=== PATIENT | male | born 1950 | race Caucasian/White ===

== ENCOUNTER 2017-01-26 02:33 | Inpatient (IN) | payer OTHER ==
--- NOTE | 2017-01-26 02:43 | PROVIDER DOCUMENTATION ---
HPI-General Adult - General Chief Complaint: Low Blood Sugar Stated Complaint: low blood sugar Time Seen by Provider: 01/26/17 02:37 Source: patient - History of Present Illness -Gen Adult Nature of Presenting Problems: Pt is a 66 yom who presents to ER via EMS with CC of low blood sugar. Per EMS, pt reports that he woken up by due to pt sweating profusely. Pt's reports that pt was extremely difficult to arouse. EMS reports that pt's bloodsugar was 40 on arrival, was given a shot of D50 and blood sugar ric to 104. Location of Pain/Injury: reports: none Pain Radiation: reports: no radiation Quality of Pain: reports: none Severity: reports: moderate Onset/Duration: reports: 1/2 hour ago Timing: reports: still present, improving Context/Activities at Onset: reports: sleep Associated Symptoms: reports: diaphoresis, fatigue, weakness. denies: anxiety, arm pain, back/neck pain, chest pain, constipation, cough, diarrhea, dizziness, EENT symptoms, fever/chills, genitourinary problems, headaches, heartburn, joint pain, loss of appetite, muscle aches, sinus congestion/drainage, nausea, rash, shortness of breath, sensory/motor loss, syncope, vomiting, trouble walking - Diabetes Related Context Context: reports: low blood sugar Review of Systems - Adult - REVIEW OF SYSTEMS - ADULT Constitutional: reports: fatique, night sweats. denies: chills, fever, weight gain, weight loss Eyes: reports: no symptoms reported Ears, Nose, Mouth & Throat: reports: no symptoms reported Cardiovascular: reports: no symptoms reported Respiratory: reports: no symptoms reported Gastrointestinal: reports: no symptoms reported Genitourinary: reports: no symptoms reported Musculoskeletal: reports: no symptoms reported Integumentary: reports: other (diaphoretic). denies: hives, hair loss, itching , mole changes, nail changes, rash, skin sores/ulcer, skin thickening Neurological: reports: no symptoms reported Psychiatric: reports: no symptoms reported Endocrine: reports: excessive sweating. denies: change in skin pigment, goiter , cold intolerance, heat intolerance, increased hunger, increased thirst, polyuria Hematologic/Lymphatic: reports: no symptoms reported Allergic/Immunologic: reports: no symptoms reported All Other Systems: Reviewed and Negative Past History - Adult - PAST MEDICAL HISTORY-ADULT Review of Records: reports: Nursing Assessment Review, Medications Reviewed - IMMUNIZATION STATUS Childhood Immunizations: See Nurse Assessment Flu Vaccine: See Nurse Assessment Physical Exam-General - PHYSICAL EXAM-ADULT Initial Vital Signs Reviewed: Yes - CONSTITUTIONAL General Appearance: appears well, alert, no apparent distress, obese, lethargic , slow to respond. negative: mild distress, anxious - RESPIRATORY Respiratory: chest non-tender, lungs clear, normal breath sounds. negative: respiratory distress, decreased breath sounds, accessory muscle use, wheezing - CARDIOVASCULAR Cardiovascular: normal peripheral pulses, regular rate, rhythm. negative: bradycardia, tachycardia - GASTROINTESTINAL (ABDOMEN) Abdominal Exam: normal bowel sounds, non tender, soft. negative: abnormal bowel sounds, distended, tenderness, mass - NEUROLOGIC Neurologic: grossly normal, no motor/sensory deficits. negative: facial droop, focal weakness, motor weakness, sensory deficit - PSYCHIATRIC Psych/Mental Status: normal thought content, normal thought process, oriented x 3, depressed affect. negative: normal mood/affect Progress - EKG 1 Time of EKG reading by physician:: 02:45 EKG Read and Signed by:: Aditya De Guzman EKG Interpretation (*Must complete 3 of following elements*): Abnormal (Cannot rule out Anterior infarct, age undetermined) Rate: 54 Rhythm: Sinus bradycardia Attestation - Scribe Verification/Attestation Scribe:: Enrico Lopez Acting as Scribe for:: Aditya De Guzman [employer] documention review:: This chart was documented by a scribe and accurately reflects the service the provider performed and the decisions made by the provider.
[2017-01-26] MEDS ORDERED: D50W SYRINGE ONE (02:44)
[2017-01-26] MEDS ORDERED: D5 NS 1,000 ML IV ONE (02:47)
[2017-01-26] MEDS ORDERED: D50W SYRINGE IV ONE (02:53)
[2017-01-26] MEDS ORDERED: D5 NS IV ONE (02:54)
[2017-01-26 03:50] LABS: MANUAL DIFF NEEDED? NO
[2017-01-26 03:55] LABS: BASO% 0.2 % (0.0-0.8); EOS# 0.21 X1000 (0.0-0.7); EOS% 1.2 % (0.0-10.0); HEMATOCRIT 45.2 % (42.0-52.0); HEMOGLOBIN 15.5 g/dL (14.0-18.0); IMM GRAN# 0.06 X1000 (0.0-0.04); IMM GRAN% 0.3 % (0.0-0.5); LYMPH# 3.92 X1000 (1.2-3.4); LYMPH% 22.6 % (20.5-51.1); MCH 29.8 PG (27-31); MCHC 34.3 g/dL (33-37); MCV 86.9 FL (81-99); MONO# 1.25 X1000 (0.11-0.59); MONO% 7.2 % (1.7-9.3); MPV 11.2 FL (7.4-10.4); NEUT% 68.5 % (42.2-75.2); PLT 251 X1000 (130-400)
[2017-01-26 04:19] LABS: AGAP 16; ALBUMIN 4.2 g/dL (3.5-5.0); ALKALINE PHOSPHATASE 60 U/L (32-122); BUN 22 mg/dL (8-22); CALCIUM 9.4 mg/dL (8.8-10.2); CHLORIDE 101 mmol/L (98-107); COSMO 278; GOT 24 U/L (10-34); GPT 33 U/L (10-44); POTASSIUM 3.4 mmol/L (3.5-5.1); SODIUM 139 mmol/L (136-145); TCO2 22 mmol/L (25-35); TOTAL BILIRUBIN 0.37 mg/dL (0.20-1.00); TOTAL PROTEIN 7.1 g/dL (6.3-8.3)
[2017-01-26 04:32] LABS: CK PROFILE 299 U/L (24-204)
[2017-01-26 04:57] LABS: URINE CULTURE NEEDED? NO; URINE MICRO REVIEW NEEDED? NO; URINE SOURCE CLEAN CATCH
[2017-01-26 05:16] LABS: BILIRUBIN URINE NEGATIVE (NEGATIVE); BLOOD URINE NEGATIVE (NEGATIVE); COLOR YELLOW; GLUCOSE URINE 200 mg/dL (NEGATIVE); LEUKOCYTES URINE NEGATIVE (NEGATIVE); NITRITE URINE NEGATIVE (NEGATIVE); PROTEIN URINE TRACE mg/dL (NEGATIVE); SP GRAVITY URINE 1.015; TURBIDITY URINE CLEAR (CLEAR); UROBILINOGEN URINE NORMAL (NORMAL)
[2017-01-26 05:17] LABS: UR EPITHELIAL CELLS <10 /HPF (<10); URINE BACTERIA NEGATIVE /HPF; URINE RBC <10 /HPF (<10); URINE WBC <10 /HPF (<10)
[2017-01-26 05:19] LABS: CK INDEX 1.8 (0.0-2.5); CK-MB 5.53 ng/mL (0.0-5.0)
[2017-01-26 05:25] LABS: UR AMPHETAMINES QUAL NONE DETECTED (NONE DETECT); UR BARBITUATES QUAL NONE DETECTED (NONE DETECT); UR BENZODIAZEPIN QUAL NONE DETECTED (NONE DETECT); UR CANNABINOIDS QUAL NONE DETECTED (NONE DETECT); UR COCAINE QUAL NONE DETECTED (NONE DETECT); UR METHADONE QUAL NONE DETECTED (NONE DETECT); UR OPIATES QUAL NONE DETECTED (NONE DETECT); UR OXYCODONE QUAL NONE DETECTED (NONE DETECT); UR PCP QUAL NONE DETECTED (NONE DETECT)
[2017-01-26] MEDS ORDERED: D50W SYRINGE IV PRN (07:01)
[2017-01-26] MEDS ORDERED: ZOFRAN IV PRN (07:01)
[2017-01-26] MEDS ORDERED: TYLENOL PO PRN (07:01)
[2017-01-26] MEDS ORDERED: LOVENOX SUBQ SCH (07:01)
[2017-01-26] MEDS ORDERED: POTASSIUM CHLORIDE 10 MEQ in D5 NS 1,000 ML IV ONE (07:01)
--- NOTE | 2017-01-26 07:33 | HISTORY AND PHYSICAL ---
REASON FOR ADMISSION: Decreased responsiveness in early hours this morning. HISTORY OF PRESENT ILLNESS: Mr. Gopal Reyes is a 66-year-old man with a past medical history of type 2 diabetes and hypertension. His noticed that while they were in bed, she rolled over in bed and noticed that the sheets were very wet on the side where her was sleeping. Initially, she thought he had urinated in the bed but when she observed closely, she noticed that he was in a very unusual deep sleep. She tried to arouse him but he did not arouse. Then she called EMS. At that time, they checked him. His blood sugar was less than 40. They gave him some D50 and he aroused enough to recognize his and became very somnolent on his way to the hospital. On 2 successive times, his blood sugar has dropped down into the sub 40 range despite having an ampule of D50 and having D5 running. He is being admitted because of his persistently low blood sugar. Patient reports that a few weeks ago, Dr. John increased his Levemir dose which he takes about 50 units at bedtime because his blood sugars were persistently elevated and was having polyuria and polydipsia. He reports that he has been doing rather well since then and not aware of any hypoglycemic spell. The patient denies any cardiorespiratory, GI, , neurological complaints at this time. He only feels a little weak but otherwise no other acute complaints. REVIEW OF SYSTEMS: Twelve system review is negative. Positive findings per HPI. ALLERGIES: Codeine. MEDICATIONS: List not available but he takes is oral hypoglycemics with 50 units of Levemir. FAMILY HISTORY: No first-degree relatives with heart disease or diabetes. SURGICAL HISTORY: He has had knee and shoulder surgery. SOCIAL HISTORY: Lives with his . Does not smoke, drink, or use illicit drugs. LAB WORK: White count is 17,000, hemoglobin and hematocrit 15 and 45, platelets 251,000 with normal differential. Chemistries still pending are troponin, lactate, urine drug screen, and urinalysis. PHYSICAL EXAMINATION: VITAL SIGNS: Blood pressure 150/79, heart rate 55, respirations 18, temperature is 98, he is 96% on room air. GENERAL: He is a middle-aged, man who is not in acute distress. He is A and O x3 with normal mood and affect. He is slightly drowsy. HEENT: Head is normocephalic, atraumatic. Eyes: KADE, EOMI. He is anicteric and not pale. ENT and oropharynx exam is grossly normal. NECK: Supple. No JVD or carotid bruit. No thyromegaly. INTEGUMENTARY: The patient has decreased skin turgor. CHEST: Clear to auscultation with good air entry both lung quinteros. CARDIOVASCULAR: First and sounds heard. No gallops, murmurs, rubs. Rhythm is regular. ABDOMEN: Protuberant, soft, nontender. No mass or organomegaly. Bowel sounds are hypoactive. RECTAL: Examination deferred at this time. EXTREMITIES: Neurovascularly intact. No edema, clubbing, or peripheral cyanosis. NEUROLOGIC: No focal deficits. SKIN: Intact. No breakdown, lesions, or erythema. MUSCULAR: Examination is grossly normal. ASSESSMENT: 1. Persistent hypoglycemia. 2. Type 2 diabetes. 3. Hypertension. 4. Reactive leukocytosis. 5. Dehydration. PLAN: At this time, awaiting the outstanding labs and medication list which needs to be reviewed. Patient was not able to provide the latter. For now, we will aggressively treat the patient with D50 if blood sugar drops below 100. Continue with D5 NS to maintain elevated blood sugars and replenish patient's depleted intravascular volume. I told the patient that when he is discharged, he should go home on a lower dose of Levemir but at this time, take it during the day so he will be aware when his blood sugars drop. Otherwise, sugar Accu-Cheks will done every 4 hours to closely monitor his blood sugars and repeat labs in the morning.
[2017-01-26] MEDS: HUMALOG SUBQ SCH ×3 (08:05→16:18)
--- NOTE | 2017-01-26 09:08 | EKG Report ---
Test Performed on : 01/26/2017 02:34:23 AM Test Reason : AMS Blood Pressure : / mmHG Vent. Rate : 054 BPM Atrial Rate : 054 BPM P-R Int : 182 ms QRS Dur : 116 ms QT Int : 488 ms P-R-T Axes : 044 041 072 degrees QTc Int : 462 ms Sinus bradycardia. Cannot rule out Anterior infarct , age undetermined Abnormal ECG No previous ECGs available Unconfirmed Result
[2017-01-26] MEDS ORDERED: GLUCOPHAGE PO SCH (17:00)
--- NOTE | 2017-01-26 18:06 | PROGRESS NOTE ---
DATE: 01/26/2017 SUBJECTIVE: Mr. Gopal Reyes states he feels much better, would like to go home. Will have to readjust some of his insulin to make sure he does not have any more hypoglycemic episodes. Otherwise no complaints. OBJECTIVE: Vital signs: Temperature is 97.7 degrees, heart rate 77, respiratory rate 20, blood pressure 151/80, O2 saturation 97% on room air. General: Mr. Reyes 66-year-old male, no acute distress. Able to answer all questions appropriately. Cardiovascular: S1, S2. Regular rate and rhythm. No rubs, gallops, murmurs. Pulmonary: Clear to auscultate, bilateral breath sounds. No accessory muscle use or work of breathing noted. GI: Soft, nontender, nondistended. Positive bowel sounds x4. LABORATORY DATA: Glucoses 3 a.m. was 35, 5 a.m. was 211, 8 a.m. was 289 and around 1130 maybe even 12 not sure but it was 351. ASSESSMENT/PLAN: 1. Diabetes mellitus type 2 with symptomatic hypoglycemia. Apparently his insulin regimen has been changed recently. He is supposed to take Levemir 55 units nightly. Patient actually only took 40 units last night secondary to the fact that he has noticed that his pattern blood glucoses have been in the 80s upon waking in the mornings. He did arrive with blood glucoses in the 30s and 40s. He received D50 and he received D5 with normal saline at 50 an hour. This has been stopped since we are now stabilized with blood glucoses 200s-300s. Diet has been changed to diabetic diet from regular diet. Will continue with pattern blood glucoses, sliding scale insulin. Will decrease his Levemir to 20 units tonight from 55. Will continue his home oral regimen. If he continues to have hypoglycemic episodes will need to readjust medication regimen again, if is stable through the night may be able to be discharged in the morning. 2. Hypertension stable. 3. Leukocytosis. This is likely secondary to inflammation from stress response of hypoglycemia. 4. Dehydration resolved, taking in excellent oral intake. 5. Deep venous thrombosis prophylaxis Lovenox. 6. Gastrointestinal prophylaxis. Will add proton pump inhibitor. Dictated by SHARIFA Parry for Jsese Hernandez MD
[2017-01-26 19:27] VITALS: BP 134/74
[2017-01-26] MEDS ORDERED: LANTUS SUBQ SCH (21:00)
[2017-01-26] MEDS ORDERED: LEVEMIR SUBQ SCH (21:00)
[2017-01-26] MEDS ORDERED: AMARYL PO SCH (21:00)
[2017-01-26] MEDS ORDERED: LIPITOR PO SCH (21:00)
[2017-01-27] MEDS ORDERED: PRILOSEC PO SCH (07:00)
[2017-01-27] MEDS ORDERED: VISKEN PO SCH (09:00)
--- NOTE | 2017-01-27 11:27 | DISCHARGE SUMMARY ---
ADMISSION DATE: 01/26/2017 DISCHARGE DATE: 01/26/2017 HISTORY AND HOSPITAL COURSE: This is a 66-year-old with a past medical history of type 2 diabetes mellitus and hypertension. While he was in bed she rolled over in bed and noticed that the sheets were very wet on the side where her was sleeping. Initially thought that it was him urinating in the bed but when she observed closely she noticed a very unusual deep sleep. Tried to arouse him but he did not arouse and she called EMS. At that time they checked him and his sugar was 40. They gave him an amp of D50 and aroused enough to recognize . Became very somnolent on the way to the hospital. Blood was checked several times and it was in the 40s. We gave him some D5 and D50. His sugars came up and he woke up. I rechecked him at about 7 o'clock in the evening and he wanted to go home. We had decreased his Lantus. They had slowly increased it as an outpatient to 55 units at night. He is not on an oral hypoglycemic such as sulfonylureas. So, will let him go home and restart his metformin. Go back down on the Levemir to 25 units at bedtime, the pindolol 5 mg daily, glimepiride he will take 4 mg p.o. b.i.d., and Lipitor 40 mg daily. His renal function looked good. I want him to follow up with his primary care physician. I think he has an appointment to follow up in a couple of weeks.
== END 2017-01-26 19:32 | disposition home or self-care (01) | DRG 639 ==
LOC: EDBD → ED 02:33 → EDIPHOLD 05:08
PROVIDERS: ATTEND Emergency Medicine
DX: E11.649 Type 2 diabetes mellitus with hypoglycemia without coma (principal); I10 Essential (primary) hypertension; E86.0 Dehydration; Z79.4 Long term (current) use of insulin; Z79.899 Other long term (current) drug therapy; Z79.84 Long term (current) use of oral hypoglycemic drugs
CPT/HCPCS: 80053; 81001; 82550; 82553; 82948; 84484; 85025; 93005; G0480; J1650; J1815; J3480; J7042; 80324; 80345; 80346; 80349; 80353; 80358; 80361; 80365; 83992